=== PATIENT | female | born 1990 | race Caucasian/White ===

== ENCOUNTER 2018-05-04 14:15 | Emergency (ER) | payer MEDICAID ==
--- NOTE | 2018-05-04 14:37 | EDM.PDOC ---
ED HPI GENERAL MEDICAL PROBLEM - General Chief Complaint: Genitourinary Problem Stated Complaint: ABDOMINAL PAIN Time Seen by Provider: 05/04/18 14:36 - History of Present Illness INITIAL COMMENTS - FREE TEXT/NARRATIVE: 27-year-old female presents emergency room with abdominal pain. This pain is getting worse over the last couple of days. The pain is associated with quite a bit of urinary frequency but she just dribbles when she tries to go she may have felt warm yesterday otherwise no fevers chills no nausea vomiting diarrhea or constipation. Recently the patient was admitted with what they thought was an infected kidney stone. This wasn't [place]. She spent 3 days in the hospital. Apparently the stone was pretty small knee told her she would not know if she passed under not however she had a UTI at the same time. We are trying to obtain his old records. Past medical history significant only for endometriosis suspected in the past abdominal surgeries in the past include laparoscopic look for endometriosis. Lower Pelvic Pain Score (Numeric/FACES): 7 - Related Data Allergies Allergy/AdvReac Type Severity Reaction Status Date / Time amoxicillin Allergy Swelling Verified 05/04/18 14:32 naproxen Allergy Hives Verified 05/04/18 14:32 Penicillins Allergy Swelling Verified 05/04/18 14:32 Home Meds: Home Meds ALPRAZolam [Xanax] 0.5 mg PO BID PRN 05/04/18 [History] Acetaminophen/HYDROcodone [[place] 325-5 MG] 1 tab PO Q6H PRN #10 tablet 05/04/18 [Rx] Ciprofloxacin HCl [Cipro] 500 mg PO Q12H #20 tablet 05/04/18 [Rx] Phenazopyridine [Pyridium] 100 mg PO TID #6 tab 05/04/18 [Rx] Past Medical History Genitourinary History: Reports: Renal Calculus, UTI, Recurrent Social & Family History - Tobacco Use Smoking Status *Q: Current Every Day Smoker Years of Tobacco use: 7 Packs/Tins Daily: 0.3 - Caffeine Use Caffeine Use: Reports: Energy Drinks, Soda - Recreational Drug Use Recreational Drug Use: No ED ROS GENERAL - Review of Systems Review Of Systems: See Below Constitutional: Reports: No Symptoms, Other (She had some subjective warmth yesterday) HEENT: Reports: No Symptoms Respiratory: Reports: No Symptoms Cardiovascular: Reports: No Symptoms Endocrine: Reports: No Symptoms GI/Abdominal: Reports: Abdominal Pain (Suprapubic and left-sided). Denies: Constipation, Diarrhea, Nausea, Vomiting : Reports: Dysuria, Flank Pain, Frequency, Pain, Urgency Musculoskeletal: Reports: No Symptoms Neurological: Reports: No Symptoms Psychiatric: Reports: No Symptoms ED EXAM, GI/ABD - Physical Exam Exam: See Below General Appearance: Alert, No Apparent Distress Neck: Normal Inspection, Supple, Non-Tender. No: Lymphadenopathy (L), Lymphadenopathy (R) Respiratory/Chest: No Respiratory Distress, Lungs Clear, Normal Breath Sounds Cardiovascular: Regular Rate, Rhythm, No Edema, No Murmur GI/Abdominal Exam: Normal Bowel Sounds, Soft, Other (Mild left-sided discomfort not really aggravated with palpation she has marked Suprapubic discomfort certainly aggravated by palpation no rigidity rebound or guarding) Extremities: Normal Inspection, No Pedal Edema Neurological: Alert, Oriented, Normal Cognition Psychiatric: Normal Affect, Normal Mood Course - Vital Signs Last Recorded V/S: Last Vital Signs Temp 36.6 C 05/04/18 14:27 Pulse 74 05/04/18 14:27 Resp 20 05/04/18 14:27 BP 131/88 05/04/18 14:27 Pulse Ox 100 05/04/18 14:27 - Orders/Labs/Meds Orders: Active Orders 24 hr Category Date Time Status Abdomen Pelvis wo Cont [CT] Stat Exams 05/04/18 16:04 Taken CULTURE URINE [RM] Stat Lab 05/04/18 14:40 Received UA W/MICROSCOPIC [URIN] Stat Lab 05/04/18 14:40 Ordered Labs: Laboratory Tests 05/04/18 05/04/18 05/04/18 Range/Units 14:40 14:40 15:02 WBC 8.39 (3.98-10.04) K/mm3 RBC 3.86 L (3.98-5.22) M/mm3 Hgb 11.6 (11.2-15.7) gm/L Hct 35.0 (34.1-44.9) % MCV 90.7 (79.4-94.8) fl MCH 30.1 (25.6-32.2) pg MCHC 33.1 (32.2-35.5) g/dl RDW Std Deviation 44.0 (36.4-46.3) fL Plt Count 290 (182-369) K/mm3 MPV 10.3 (9.4-12.3) fl Neutrophils % (Manual) 72 H (40-60) % Band Neutrophils % 0 (0-10) % Lymphocytes % (Manual) 20 (20-40) % Atypical Lymphs % 2 % Monocytes % (Manual) 5 (2-10) % Eosinophils % (Manual) 1 (0.7-5.8) % Basophils % (Manual) 0 L (0.1-1.2) Platelet Estimate Adequate Plt Morphology Comment Normal RBC Morph Comment Normal Sodium (136-145) mEq/L Potassium (3.5-5.1) mEq/L Chloride (98-107) mEq/L Carbon Dioxide (21-32) mEq/L Anion Gap (5-15) BUN (7-18) mg/dL Creatinine (0.55-1.02) mg/dL Est Cr Clr Drug Dosing mL/min Estimated GFR (MDRD) (>60) mL/min BUN/Creatinine Ratio (14-18) Glucose (74-106) mg/dL Calcium (8.5-10.1) mg/dL Urine Color Yellow (Yellow) Urine Appearance Slt cloudy H (Clear) Urine pH 7.0 (5.0-8.0) Ur Specific [place] 1.025 (1.005-1.030) Urine Protein Negative (Negative) Urine Glucose (UA) Negative (Negative) Urine Ketones Negative (Negative) Urine Occult Blood Negative (Negative) Urine Nitrite Positive H (Negative) Urine Bilirubin Negative (Negative) Urine Urobilinogen 1.0 (0.2-1.0) Ur Leukocyte Esterase 2+ H (Negative) Urine RBC 0-5 (0-5) /hpf Urine WBC >100 H (0-5) /hpf Urine WBC Clumps Moderate (NOT SEEN) /hpf Ur Epithelial Cells 0-5 (0-5) /hpf Urine Bacteria Moderate H (FEW) /hpf Urine Mucus Moderate H (FEW) /hpf Urine HCG, Qual Negative (NEGATIVE) 05/04/18 Range/Units 15:02 WBC (3.98-10.04) K/mm3 RBC (3.98-5.22) M/mm3 Hgb (11.2-15.7) gm/L Hct (34.1-44.9) % MCV (79.4-94.8) fl MCH (25.6-32.2) pg MCHC (32.2-35.5) g/dl RDW Std Deviation (36.4-46.3) fL Plt Count (182-369) K/mm3 MPV (9.4-12.3) fl Neutrophils % (Manual) (40-60) % Band Neutrophils % (0-10) % Lymphocytes % (Manual) (20-40) % Atypical Lymphs % % Monocytes % (Manual) (2-10) % Eosinophils % (Manual) (0.7-5.8) % Basophils % (Manual) (0.1-1.2) Platelet Estimate Plt Morphology Comment RBC Morph Comment Sodium 140 (136-145) mEq/L Potassium 3.7 (3.5-5.1) mEq/L Chloride 104 (98-107) mEq/L Carbon Dioxide 26 (21-32) mEq/L Anion Gap 13.7 (5-15) BUN 12 (7-18) mg/dL Creatinine 0.6 (0.55-1.02) mg/dL Est Cr Clr Drug Dosing 133.01 mL/min Estimated GFR (MDRD) > 60 (>60) mL/min BUN/Creatinine Ratio 20.0 H (14-18) Glucose 90 (74-106) mg/dL Calcium 8.2 L (8.5-10.1) mg/dL Urine Color (Yellow) Urine Appearance (Clear) Urine pH (5.0-8.0) Ur Specific [place] (1.005-1.030) Urine Protein (Negative) Urine Glucose (UA) (Negative) Urine Ketones (Negative) Urine Occult Blood (Negative) Urine Nitrite (Negative) Urine Bilirubin (Negative) Urine Urobilinogen (0.2-1.0) Ur Leukocyte Esterase (Negative) Urine RBC (0-5) /hpf Urine WBC (0-5) /hpf Urine WBC Clumps (NOT SEEN) /hpf Ur Epithelial Cells (0-5) /hpf Urine Bacteria (FEW) /hpf Urine Mucus (FEW) /hpf Urine HCG, Qual (NEGATIVE) Meds: Medications Discontinued Medications Generic Name Dose Route Start Last Admin Trade Name Freq PRN Reason Stop Dose Admin Hydromorphone HCl 0.5 mg 05/04/18 15:26 05/04/18 15:37 Dilaudid IVPUSH 05/04/18 15:27 0.5 mg ONETIME ONE Administration Sodium Chloride 1,000 mls @ 999 mls/hr 05/04/18 15:28 05/04/18 15:37 Normal Saline IV 05/04/18 16:28 999 mls/hr ONETIME ONE Administration Levofloxacin 750 mg 05/04/18 16:52 Levaquin PO 05/04/18 16:53 ONETIME ONE - Re-Assessments/Exams Free Text/Narrative Re-Assessment/Exam: 05/04/18 16:55 Urinalysis is strongly suggestive of a urinary tract infection culture from her last admission in [place] results reviewed Escherichia coli resistant to gentamicin susceptible to Rocephin, patient spent allergic and quinolones which she does not have a history of allergies to. Patient will receive 750 mg of by mouth Levaquin now will be discharged with prescription for Cipro 500 mg 2 times a day 10 days. Departure - Departure Time of Disposition: 16:56 Disposition: Home, Self-Care 01 Clinical Impression: Urinary tract infection - Discharge Information Prescriptions: Acetaminophen/HYDROcodone [[place] 325-5 MG] 1 tab PO Q6H PRN #10 tablet PRN Reason: Abdominal Pain Ciprofloxacin HCl [Cipro] 500 mg PO Q12H #20 tablet Phenazopyridine [Pyridium] 100 mg PO TID #6 tab Referrals: PCP,Not In Area [Primary Care Provider] - Forms: ED Department Discharge Additional Instructions: Return to this emergency room or another emergency room with any questions or problems. Take the medication as directed start the new antibiotic tomorrow evening. Follow-up with your regular doctor middle of this next week No driving tonight as you've been given medication they can slow your reflexes and judgment. If the hydrocodone as needed for pain control allow 12 hours after using it before driving or returning to work - My Orders Last 24 Hours: My Active Orders 05/04/18 14:40 CULTURE URINE [RM] Stat UA W/MICROSCOPIC [URIN] Stat 05/04/18 16:04 Abdomen Pelvis wo Cont [CT] Stat - Assessment/Plan Last 24 Hours: My Active Orders 05/04/18 14:40 CULTURE URINE [RM] Stat UA W/MICROSCOPIC [URIN] Stat 05/04/18 16:04 Abdomen Pelvis wo Cont [CT] Stat
[2018-05-04] MEDS ORDERED: HYDROmorphone 0.5 MG/0.5 ML SYRINGE IVPUSH ONE (15:26)
[2018-05-04] MEDS ORDERED: Sodium Chloride 0.9% 1,000 ML IV ONE (15:28)
[2018-05-04] MEDS ORDERED: Levofloxacin 750 MG Tab PO ONE (16:52)
--- NOTE | 2018-05-06 16:33 | CT ---
CT abdomen and pelvis Technique: Multiple axial sections were obtained from above the dome of the diaphragm inferiorly through the pubic symphysis. Intravenous and oral contrast was not utilized. Study has been performed as a ureteral stone protocol. Comparison: No prior abdominal imaging. Findings: Left kidney shows a minimal 1-2 mm calcification within the lower pole compatible with nonobstructing stone. No ureteral dilatation is seen. No ureteral calculi are identified. Visualized lung bases show nothing acute. Noncontrast appearance of the liver appears within normal limits. Small calcified granulomas are seen within the spleen. Adrenal glands are unremarkable. Pancreas not optimally seen due to unopacified bowel but shows no discrete abnormality. Gallbladder contains no calcified gallstones. Aorta shows no aneurysmal dilatation. No retroperitoneal adenopathy or mesenteric abnormalities are seen. Appendix is seen which is normal in size. Small amount of free fluid seen within the cul-de-sac which is believed to be physiologic. Mild increased stool seen throughout the colon. Impression: 1. Increased stool throughout the colon. 2. Small amount of free fluid within the pelvis believed to represent physiologic fluid. 3. Minimal calcification within the inferior left kidney measuring about 1-2 mm compatible with nonobstructing stone. No ureteral dilatation or ureteral calculi are seen. 4. Other incidental findings. Diagnostic code #2 I agree with preliminary report from [facility], finalized at 05/04/18, 5:33 PM Central Time [facility]
== END 2018-05-04 17:24 | disposition home or self-care (01) ==
LOC: JD.ED 14:15
DX: N39.0 Urinary tract infection, site not specified (principal); F17.210 Nicotine dependence, cigarettes, uncomplicated; Z88.0 Allergy status to penicillin; Z88.1 Allergy status to other antibiotic agents; Z88.5 Allergy status to narcotic agent; Z79.899 Other long term (current) drug therapy; Z87.442 Personal history of urinary calculi
CPT/HCPCS: 36415; 74176; 80048; 81001; 81025; 85007; 85027; 87086; 96361; 96374; 99284; A9270; J1170; J7040; 87088